=== PATIENT | female | born 1970 | race Caucasian/White ===

== ENCOUNTER 2025-03-15 23:25 | Emergency (ER) | payer OTHER ==
[~2025-03-15] VITALS: Ht 165.1 cm; Wt 58.1 kg
[2025-03-15] MEDS ORDERED: METF-442 PO (23:34)
[2025-03-15] MEDS ORDERED: OMEP20TA5 PO (23:34)
[2025-03-15] MEDS ORDERED: SITA50TA PO (23:34)
[2025-03-15 23:52] LABS: BASOPHILS % (AUTO) 0.5 % (0.0-2.0); EOSINOPHILS # (AUTO) 0.1 K/uL (0.0-0.7); HEMATOCRIT 37.5 % (31.2-41.9); HEMOGLOBIN 12.8 g/dL (10.9-14.3); LYMPHOCYTES # (AUTO) 1.2 K/uL (0.8-4.8); LYMPHOCYTES % (AUTO) 19.8 % (20.5-51.5); MEAN CORPUSCULAR HEMOGLOBIN 30.6 uug (24.7-32.8); MEAN CORPUSCULAR HGB CONC 34 g/dL (32.3-35.6); MEAN CORPUSCULAR VOLUME 89.5 fL (75.5-95.3); MONOCYTES # (AUTO) 0.5 K/uL (0.1-1.30); MONOCYTES % (AUTO) 8.9 % (0.0-11.0); NEUTROPHILS # (AUTO) 4.2 K/uL (1.8-8.9); NEUTROPHILS % (AUTO) 69.8 % (38.5-71.5); PLATELET COUNT (AUTO) 193 K/uL (179-408); RED BLOOD CELL COUNT(AUTO) 4.19 MIL/uL (3.63-4.92); RED CELL DISTRIBUTION WIDTH 13.2 % (12.3-17.7)
[2025-03-16 00:05] LABS: DIFFERENTIAL COMMENT 1
[2025-03-16] MEDS ORDERED: INSULIN REGULAR, HUMAN 1000 UNIT/10 ML VIAL ONE (00:06)
[2025-03-16 00:11] LABS: CALCIUM 10.2 mg/dL (8.5-10.1); CARBON DIOXIDE 28 mmol/L (21-32); CHLORIDE 101 mmol/L (98-107); CREATININE 0.9 mg/dL (0.6-1.3); POTASSIUM 4.2 mmol/L (3.5-5.1); SODIUM SERUM 139 mmol/L (136-145); UREA NITROGEN, BLOOD 20 mg/dL (7-18)
[2025-03-16 00:12] LABS: GLUCOSE 454 mg/dL (74-106)
[2025-03-16 00:13] LABS: ACETONE, SERUM NEGATIVE (NEGATIVE)
[2025-03-16] MEDS: IV NS 1000 ML 1,000 ML IV ONE ×2 (00:13)
[2025-03-16] MEDS: INSULIN REGULAR, HUMAN 1000 UNIT/10 ML VIAL IV ONE (00:15)
[2025-03-16 00:24] LABS: ALANINE AMINOTRANSFERASE 22 U/L (14-59); ALBUMIN 3.9 g/dL (3.4-5.0); ALKALINE PHOSPHATASE 118 U/L (50-136); ASPARTATE AMINOTRANSFERASE 15 U/L (15-37); BILIRUBIN,TOTAL 0.5 mg/dL (0.2-1.0); NT-PRO BNP 31 pg/mL (0-125); TOTAL PROTEIN, SERUM 7.1 g/dL (6.4-8.2)
[2025-03-16 00:54] LABS: *BILIRUBIN,URIN NEGATIVE (NEGATIVE); *BLOOD, URINE NEGATIVE (NEGATIVE); *CLARITY,URINE CLEAR (CLEAR); *COLOR,URINE YELLOW (YELLOW); *KETONES,URINE NEGATIVE (NEGATIVE); *PROTEIN,URINE NEGATIVE (NEGATIVE); *UROBILINOGEN,URINE 0.2 E.U./dl (NORMAL); LEUKOCYTE ESTERASE ,URINE NEGATIVE (NEGATIVE); NITRITE, URINE NEGATIVE (NEGATIVE); PH,URINE 6.5 (5.0-8.0); UGLUCOSE 2+ (NEGATIVE)
[2025-03-16] MEDS ORDERED: predniSONE 20 MG TABLET PO ONE (01:45)
[2025-03-16] MEDS ORDERED: ONDANSETRON 4 MG/2 ML VIAL ONE (01:50)
[2025-03-16] MEDS ORDERED: MORPHINE SULFATE 2 MG/1 ML DISP.SYRIN ONE (01:50)
[2025-03-16] MEDS ORDERED: PANTOPRAZOLE SODIUM 40 MG VIAL ONE (01:50)
[2025-03-16] MEDS ORDERED: IOHEXOL 300MG/ML 100 ML INFUS..BTL ONE (02:04)
[2025-03-16] MEDS: MORPHINE SULFATE 2 MG/1 ML DISP.SYRIN IV ONE (02:06)
[2025-03-16] MEDS: ONDANSETRON 4 MG/2 ML VIAL IV ONE (02:06)
[2025-03-16] MEDS: PANTOPRAZOLE SODIUM 40 MG VIAL IV ONE (02:06)
[2025-03-16] MEDS ORDERED: PANT20TA2 PO (03:05)
[2025-03-16 03:24] VITALS: BP 125/70; O2SAT 99
== END 2025-03-16 03:21 | disposition home or self-care (01) ==
LOC: ER 23:25
DX: E11.65 Type 2 diabetes mellitus with hyperglycemia (principal); R10.13 Epigastric pain; R06.02 Shortness of breath; Z79.84 Long term (current) use of oral hypoglycemic drugs; Z79.899 Other long term (current) drug therapy
CPT/HCPCS: 99285; 71045; 80053; 81003; 82009; 82962 ×5; 83880; 85025; 87040; 84484; 36415; 93005; 74176; 96374; 96375; 76705; 96361; J2405; Q9967; J2470; J2270; J1815; J7040; A4606; A4663